=== PATIENT | female | born 1985 | race Caucasian/White ===

== ENCOUNTER → 2017-07-19 | Outpatient (CLI) | payer OTHER ==
[2017-07-19 14:29] LABS: Source, Urine Clean Catch
[2017-07-19 16:47] LABS: Bilirubin, Urine Neg (Neg); Blood, Urine Neg (Neg); Glucose Qualitative, Urine Neg (Neg); Ketones, Urine Neg (Neg); Leukocyte Esterase, Urine Neg (Neg); Nitrite, Urine Neg (Neg); Protein, Urine Neg (Neg); Urobilinogen, Urine NORM (Normal)
[2017-07-19 16:55] LABS: Appearance, Urine Clear (Clear); Color, Urine Yellow (P-Yellow)
== END | disposition home or self-care (01) ==
LOC: LAB 14:27
PROVIDERS: Psychiatry & Neurology Neurology
DX: R32 Unspecified urinary incontinence (principal)
CPT/HCPCS: 81003

== ENCOUNTER → 2019-04-20 | Outpatient (CLI) | payer OTHER | LOC: LAB SHORT 15:43 → LAB EV 15:43 | DX: N39.0 Urinary tract infection, site not specified (principal) | CPT/HCPCS: 87077; 87086; 87186 ==

== ENCOUNTER 2019-07-25 14:44 | Emergency (ER) | payer OTHER ==
[~2019-07-25] VITALS: Ht 167.6 cm; Wt 72.6 kg
[2019-07-25] MEDS ORDERED: DULO60 PO (15:22)
== END 2019-07-25 16:02 | disposition home or self-care (01) ==
LOC: ER 14:44
DX: S83.8X2A Sprain of other specified parts of left knee, initial encounter (principal); Z88.1 Allergy status to other antibiotic agents; Z88.2 Allergy status to sulfonamides; Z88.0 Allergy status to penicillin; G35 Multiple sclerosis; Z79.899 Other long term (current) drug therapy
CPT/HCPCS: 99283

== ENCOUNTER → 2020-09-06 | Outpatient (CLI) | payer OTHER ==
[~2020-09-06] MED LIST: DULO60 PO
== END | disposition home or self-care (01) ==
LOC: LAB 12:30 → LAB SHORT 12:30
DX: N39.0 Urinary tract infection, site not specified (principal)
CPT/HCPCS: 87077; 87086; 87186

== ENCOUNTER → 2021-02-02 | Outpatient (CLI) | payer OTHER | END | disposition home or self-care (01) | LOC: LAB SHORT 19:41 → LAB 19:41 | DX: N39.0 Urinary tract infection, site not specified (principal) | CPT/HCPCS: 87077; 87086; 87186 ==

== ENCOUNTER → 2022-01-20 | Outpatient (CLI) | payer OTHER | END | disposition home or self-care (01) | LOC: LAB SHORT 15:25 → LAB 15:25 | DX: N39.0 Urinary tract infection, site not specified (principal) | CPT/HCPCS: 87077; 87086; 87186 ==

== ENCOUNTER → 2022-08-31 | Outpatient (CLI) | payer OTHER | END | disposition home or self-care (01) | LOC: LAB SHORT 15:28 | DX: E53.8 Deficiency of other specified B group vitamins (principal) | CPT/HCPCS: 82607; 82746 ==

== ENCOUNTER → 2022-10-08 | Outpatient (CLI) | payer OTHER | END | disposition home or self-care (01) | LOC: LAB 18:00 → LAB SHORT 18:00 | DX: N39.0 Urinary tract infection, site not specified (principal) | CPT/HCPCS: 87077; 87086; 87186 ==

== ENCOUNTER → 2023-01-19 | Outpatient (CLI) | payer OTHER ==
[2023-01-22 18:35] LABS: Adenovirus F 40/41 Not Detected (NOT DETECT); Astrovirus Not Detected (NOT DETECT); Campylobacter Sp Not Detected (NOT DETECT); Cryptosporidium Not Detected (NOT DETECT); Cyclospora Cayetanensis Not Detected (NOT DETECT); E. Coli O157 Not Detected (NOT DETECT); Entamoeba Histolytica Not Detected (NOT DETECT); Enteroaggregative E. coli-EAEC Not Detected (NOT DETECT); Enteropathogenic E. coli-EPEC Not Detected (NOT DETECT); Enterotoxigenic E. coli-ETEC Not Detected (NOT DETECT); Giardia Lamblia Not Detected (NOT DETECT); Norovirus GI/GII Not Detected (NOT DETECT); Plesiomonas Shigelloides Not Detected (NOT DETECT); Rotavirus A Not Detected (NOT DETECT); Salmonella Sp Not Detected (NOT DETECT); Sapovirus Not Detected (NOT DETECT); Shiga Toxin-prod E. coli-STEC Not Detected (NOT DETECT); Shigella/Enteroin E. coli-EIEC Not Detected (NOT DETECT); Vibrio Cholerae Not Detected (NOT DETECT); Vibrio Sp Not Detected (NOT DETECT); Yersinia Enterocolitica Not Detected (NOT DETECT)
== END | disposition home or self-care (01) ==
LOC: LAB 19:38 → LAB SHORT 19:38
PROVIDERS: Physician Assistant Surgical
DX: R19.7 Diarrhea, unspecified (principal)
CPT/HCPCS: 87507

== ENCOUNTER → 2023-06-14 | Outpatient (CLI) | payer OTHER | LOC: LAB 16:30 → LAB SHORT 16:30 | DX: N39.0 Urinary tract infection, site not specified (principal) | CPT/HCPCS: 87077; 87086; 87186 ==

== ENCOUNTER 2023-10-04 06:48 | Inpatient (IN) | payer OTHER ==
[2023-10-04] VITALS (24 sets, daily range): BP systolic 98–159; BP diastolic 58–91
[~2023-10-04] VITALS: Ht 167.6 cm; Wt 79.8 kg
[2023-10-04] MEDS ORDERED: Lactated Ringer's 1,000 ML IV ONE (07:04)
[2023-10-04] MEDS ORDERED: Lactated Ringer's 1,000 ML IV SCH (07:10)
[2023-10-04] MEDS ORDERED: CeFAZolin Sodium 2,000 MG in NS 100 ML IV SCH ×2 (07:10→17:00)
[2023-10-04] MEDS ORDERED: Metoclopramide HCl 5MG / ML 2ML Vial IV ONE (07:10)
[2023-10-04] MEDS ORDERED: Citric Acid/Sodium Citrate 30 ML BTL PO SCH (07:10)
[2023-10-04] MEDS ORDERED: PRENA1 CHEW TA1.4 MG PO (07:41)
[2023-10-04] MEDS ORDERED: ASPIR 8181 M1 PO (07:42)
[2023-10-04 08:49] LABS: BASOPHILS ABSOLUTE AUTO 0.06 K/mm3 (0.00-0.23); BASOPHILS PERCENT AUTO 1 % (0-2); EOSINOPHILS ABSOLUTE AUTO 0.07 K/mm3 (0.00-0.68); EOSINOPHILS PERCENT AUTO 1 % (0-6); Hematocrit 43.8 % (33.0-51.0); IMMATURE GRAN ABSOLUTE AUTO 0.02 K/mm3 (0.00-0.10); IMMATURE GRAN PERCENT AUTO 0 % (0-1); LYMPHOCYTES ABSOLUTE AUTO 1.95 K/mm3 (0.84-5.20); LYMPHOCYTES PERCENT AUTO 27 % (21-46); MONOCYTES PERCENT AUTO 10 % (4-13); Mean Corpuscular HGB 31.8 pg (26.0-34.0); Mean Corpuscular HGB Conc 34.2 g/dL (31.5-36.5); Mean Corpuscular Volume 93 fL (80-100); Mean Platelet Volume 10.8 fL (9.1-12.4); NEUTROPHILS PERCENT AUTO 61 % (41-73); Platelet Count 192 K/mm3 (150-400); RDW Coefficient Variation 13.4 % (11.7-14.2); RDW Standard Deviation 45.9 fL (35.1-46.3); Red Blood Cell Count 4.71 M/mm3 (3.80-5.20)
[2023-10-04 09:11] LABS: Albumin, Blood 2.6 g/dL (3.4-5.0); Albumin/Globulin Ratio 0.7 (0.8-1.8); Bilirubin, Total 0.4 mg/dL (0.1-1.0); Bun/Creatinine Ratio 16.4 (12.0-20.0); Creatinine, Blood 0.79 mg/dL (0.40-1.00); Globulin, Blood 3.5 g/dL (2.2-4.0); Potassium, Blood 3.8 mmol/L (3.5-5.5); Total Protein, Blood 6.1 g/dL (6.4-8.2)
[2023-10-04] MEDS ORDERED: FentaNYL Citrate 50 MCG/ML 2 ML Injection ONE (09:19)
[2023-10-04] MEDS ORDERED: ePHEDrine Sulfate 50 MG/ML 1ML Injection ONE (09:42)
[2023-10-04] MEDS ORDERED: Lidocaine HCl 2% 10 ML SDA ONE (10:04)
--- NOTE | 2023-10-04 10:32 | NUR ---
10/04/23 1032 Vonnie Voss VIABLE FEMALE DELIVERED VIA PRIMARY CS FOR IUGR AND BREECH AT 37 2/7 GESTATION. DELIVERED AT 1018 AM WEIGHING 4 POUNDS 7 OUNCES 2000 GRAMS LENGTH 17 3/4 LONG. APGARS PENDING. CORD GASES SENT WITH MIKAYLA CAMPOS AND CORD BLOOD SENT. NO NEED TO SEND PLACENTA PER DR TIKA FREY. SEE MD NOTE FOR OPERATIVE DETAILS.
[2023-10-04 10:50] LABS: PCO2 Cord - Arterial 51.8 mmHg (40-50); PO2 Cord - Arterial 33 mmHg (16-20); pH Cord - Arterial 7.27 (7.28-7.35)
[2023-10-04 10:52] LABS: pH Umbilical Cord - Venous 7.34 (7.26-7.35)
[2023-10-04 10:53] LABS: PCO2 Cord - Venous 46.2 mmHg (40-50); PO2 Cord - Venous 24.8 mmHg (28-32)
[2023-10-04] MEDS ORDERED: Promethazine HCl 25 MG Tab PO PRN (11:25)
[2023-10-04] MEDS ORDERED: OxyCODONE 5 mg/Acetamin 325 mg TABLET PO PRN (11:25)
[2023-10-04] MEDS ORDERED: Acetaminophen 500 MG Tab PO PRN (11:25)
[2023-10-04] MEDS ORDERED: Promethazine HCl 25 MG Supp PR PRN (11:25)
[2023-10-04] MEDS ORDERED: Promethazine HCl 12.5 MG Supp PR PRN (11:30)
[2023-10-04] MEDS ORDERED: Lanolin Cream TOP PRN (11:30)
[2023-10-04] MEDS ORDERED: Methylergonovine Maleate 0.2MG / ML 1ML Amp IM PRN (11:30)
[2023-10-04] MEDS ORDERED: Morphine Sulfate 4 MG/1 ML Injection IV PRN (11:30)
[2023-10-04] MEDS ORDERED: Magnesium Hydroxide Conc 10 ML UDC PO PRN (11:30)
[2023-10-04] MEDS ORDERED: Misoprostol 200 MCG Tab PR PRN (11:30)
[2023-10-04] MEDS ORDERED: Ondansetron HCl 2 MG / ML 2ML Vial IV PRN ×2 (11:30→11:40)
[2023-10-04] MEDS ORDERED: LR Oxytocin 20 Units 1,000 ML IV SCH (11:35)
[2023-10-04] MEDS ORDERED: Atropine Sulfate 0.1 MG/ML 10ML SYR IV PRN (11:35)
[2023-10-04] MEDS ORDERED: Simethicone 80 MG Chew PO PRN (11:35)
[2023-10-04] MEDS ORDERED: HydrALAZINE HCl 20 MG / ML 1ML Vial IV PRN (11:35)
[2023-10-04] MEDS ORDERED: HYDROmorphone HCl/Pf 1MG SYR IV PRN ×2 (11:35)
[2023-10-04] MEDS ORDERED: FentaNYL Citrate 50 MCG/ML 2 ML Injection IV PRN ×2 (11:40)
[2023-10-04] MEDS ORDERED: Tranexamic Acid 100 ML IV PRN (11:45)
[2023-10-04] MEDS ORDERED: Ketorolac Tromethamine 30mg Vial IV SCH (12:00)
[2023-10-04] MEDS ORDERED: DiphenhydrAMINE HCL 25 MG Cap PO PRN (12:15)
[2023-10-04] MEDS ORDERED: Ketorolac Tromethamine 30mg Vial IV PRN (14:35)
[2023-10-04] MEDS ORDERED: Ibuprofen 400 MG Tab PO PRN (14:35)
[2023-10-04] MEDS ORDERED: Ibuprofen 400 MG Tab PO SCH (16:00)
--- NOTE | 2023-10-04 19:06 | NUR ---
Rept to PM shift
[2023-10-04] MEDS ORDERED: Docusate Sodium 100 MG Cap PO SCH (21:00)
[2023-10-05] VITALS (8 sets, daily range): BP systolic 110–173; BP diastolic 53–70
[2023-10-05 06:14] LABS: BASOPHILS ABSOLUTE AUTO 0.04 K/mm3 (0.00-0.23); BASOPHILS PERCENT AUTO 0 % (0-2); EOSINOPHILS PERCENT AUTO 0 % (0-6); Hematocrit 31.1 % (33.0-51.0); Hemoglobin 10.7 g/dL (11.5-16.0); IMMATURE GRAN ABSOLUTE AUTO 0.06 K/mm3 (0.00-0.10); IMMATURE GRAN PERCENT AUTO 0 % (0-1); LYMPHOCYTES ABSOLUTE AUTO 2.86 K/mm3 (0.84-5.20); LYMPHOCYTES PERCENT AUTO 17 % (21-46); MONOCYTES ABSOLUTE AUTO 1.34 K/mm3 (0.16-1.47); MONOCYTES PERCENT AUTO 8 % (4-13); Mean Corpuscular HGB 31.9 pg (26.0-34.0); Mean Corpuscular HGB Conc 34.4 g/dL (31.5-36.5); Mean Corpuscular Volume 93 fL (80-100); NEUTROPHILS ABSOLUTE AUTO 12.38 K/mm3 (1.96-9.15); NEUTROPHILS PERCENT AUTO 74 % (41-73); Platelet Count 192 K/mm3 (150-400); RDW Coefficient Variation 13.5 % (11.7-14.2); RDW Standard Deviation 45.6 fL (35.1-46.3); Red Blood Cell Count 3.35 M/mm3 (3.80-5.20); White Blood Cell Count 16.68 K/mm3 (4.00-11.30)
[2023-10-05] MEDS ORDERED: Prenatal Vit/FE Fumarate/FA 1 Tab PO SCH (09:00)
[2023-10-05] MEDS ORDERED: Aspirin 81 MG TabEC PO SCH (09:00)
--- NOTE | 2023-10-05 15:07 | NUR ---
PT UP TO BRP WITH ASSIST FROM RN BUT PT APPEARS STRONGER ON HER LEFT SIDE. STILL REQUIRES 1 PERSON ASSIST. PT ENCOURAGED TO PUMP MULTIPLE TIMES TODAY. PT REPORTS SHE WILL BUT HASN'T YET. PT REPORTS SHE MAY JUST SWITCH TO FORMULA UNTIL HER MILK COMES IN. INFORMED THAT HER MILK WILL COME IN WITH A BETTER SUPPLY IF SHE STARTS PUMPING. PT HAS HER OWN PUMP IN THE ROOM. RN OFFERED TO ASSIST IF PT NEEDS ASSISTANCE.
[2023-10-06 05:04] VITALS: BP 135/59
[2023-10-06 07:13] VITALS: BP 127/76
--- NOTE | 2023-10-06 08:41 | NUR ---
PT UP TO BRP WITH STANDBY ASSIST ONLY. NEEDED SOME HELP GETTING LEGS IN AND OUT OF BED BUT PT REPORTS SHE FEELS STRONGER TODAY.
[2023-10-06] MEDS ORDERED: FLU VACC QS2023-24(6MOS UP)/PF 60 MCG/0.5 ML SYRINGE IM ONE (10:15)
[2023-10-06 12:46] VITALS: BP 121/60
[2023-10-06] MEDS ORDERED: IBUP800 PO (14:03)
[2023-10-06] MEDS ORDERED: DOCU100 PO (14:04)
[2023-10-06] MEDS ORDERED: Percocet 5-3251 EACH PO (14:05)
--- NOTE | 2023-10-06 15:08 | NUR ---
PT UP AMBULATING IN THE ROOM INDEPENDANTLY LONG SHE CAN REACH A SIDE RAIL OBJECT. RN IN ROOM TO ASSIST IF PT NEEDS ANYTHING. PT REPORTS SHE FEELS MUCH STRONGER AND UP TO BRP INDEPENDANTLY.
--- NOTE | 2023-10-06 15:44 | NUR ---
D/C HOME WITH BABY
== END 2023-10-06 15:46 | disposition home or self-care (01) | DRG 787 ==
LOC: BC 06:48
PROVIDERS: ADMIT Obstetrics & Gynecology
PROC: 3E1P78Z Irrigation of Female Reproductive using Irrigating Substance, Via Natural or Artificial Opening (ICD-10-PCS; 2023-10-04)
PROC: 10D00Z1 Extraction of Products of Conception, Low, Open Approach (ICD-10-PCS; principal; 2023-10-04 09:00)
DX: O36.5930 Maternal care for other known or suspected poor fetal growth, third trimester, not applicable or unspecified (principal); O99.354 Diseases of the nervous system complicating childbirth; O32.1XX0 Maternal care for breech presentation, not applicable or unspecified; Z30.2 Encounter for sterilization; O24.429 Gestational diabetes mellitus in childbirth, unspecified control; Z3A.37 37 weeks gestation of pregnancy; Z37.0 Single live birth; G35 Multiple sclerosis; Z88.0 Allergy status to penicillin; Z88.1 Allergy status to other antibiotic agents; Z88.2 Allergy status to sulfonamides; Z88.8 Allergy status to other drugs, medicaments and biological substances; Z90.49 Acquired absence of other specified parts of digestive tract; Z98.890 Other specified postprocedural states
CPT/HCPCS: 36415; 80053; 82803; 82947; 85025; 86850; 86900; 86901; 86923; A9270; J0690; J1885; J2001; J2765; J3010; J7120

== ENCOUNTER 2024-09-11 10:28 | Day surgery (SDC) | payer OTHER ==
[~2024-09-11] VITALS: Ht 167.6 cm; Wt 63.5 kg
[~2024-09-11 10:28] MED LIST changes: +AMPYRA10 MG; +ASPIR 8181 M1 PO; +CILO100 PO; +DOCU100 PO; +ERGO50000 PO; +IBUP800 PO; +PRENA1 CHEW TA1.4 MG PO; +Percocet 5-3251 EACH PO
[2024-09-11] MEDS ORDERED: CeFAZolin Sodium 2,000 MG VIAL ONE (10:46)
[2024-09-11] MEDS ORDERED: Lactated Ringer's 1,000 ML IV ONE ×2 (10:46→11:10)
[2024-09-11] MEDS ORDERED: VITAMIN D5000 UNIT PO (10:58)
[2024-09-11] MEDS ORDERED: CALCIUM-MAGNES1 EA11 PO (10:59)
[2024-09-11] MEDS ORDERED: propofoL 40 ML IV ONE (11:10)
[2024-09-11] MEDS ORDERED: FentaNYL Citrate 50 MCG/ML 2 ML Injection ONE (11:10)
[2024-09-11] MEDS ORDERED: Lidocaine HCl 2% 10 ML SDA ONE (11:25)
[2024-09-11] MEDS ORDERED: Bupivacaine 0.5% W/EPI 1:200000 SDV 30 ML Vial ONE (11:26)
[2024-09-11] MEDS ORDERED: Ondansetron HCl 2 MG / ML 2ML Vial ONE (11:30)
[2024-09-11] MEDS ORDERED: Dexamethasone Sod Phos 10 MG/ML 1ML VIAL ONE (11:30)
[2024-09-11] MEDS ORDERED: Ketorolac Tromethamine 30mg Vial ONE (11:30)
[2024-09-11] MEDS ORDERED: propofoL 50 ML IV ONE (11:31)
[2024-09-11] MEDS ORDERED: Acetaminophen 500 MG Tab ONE (11:32)
[2024-09-11] MEDS ORDERED: Dexmedetomidine HCL 200 MCG / 2 ML ONE (11:47)
[2024-09-11] MEDS ORDERED: Glycopyrrolate 0.2 MG/ML 5ML VIAL ONE (12:06)
[2024-09-11] MEDS ORDERED: Phenylephrine HCl 100 MCG/ML-NS 10MLSYR (1MG/10ML) ONE (12:13)
[2024-09-11 13:03] VITALS: BP 137/78
--- NOTE | 2024-09-11 13:05 | NUR ---
09/11/24 1304 YODIT MAHONEY DENIES PAIN AND NAUSEA
== END 2024-09-11 13:52 | disposition home or self-care (01) ==
LOC: ORSCSDS 10:28
PROVIDERS: Podiatrist Foot & Ankle Surgery
PROC: 0QBQ0ZZ Excision of Right Toe Phalanx, Open Approach (ICD-10-PCS; principal; 2024-09-11 11:45)
PROC: 0QSN04Z Reposition Right Metatarsal with Internal Fixation Device, Open Approach (ICD-10-PCS; principal; 2024-09-11 11:45)
DX: M20.5X1 Other deformities of toe(s) (acquired), right foot (principal); I73.9 Peripheral vascular disease, unspecified; Z87.891 Personal history of nicotine dependence; K21.9 Gastro-esophageal reflux disease without esophagitis; G35 Multiple sclerosis; Z79.899 Other long term (current) drug therapy; Z79.82 Long term (current) use of aspirin
CPT/HCPCS: A9270; J0690; J1100; J1885; J2003; J2371; J2405; J2704; J3010; J7120

== ENCOUNTER → 2024-12-06 | Outpatient (CLI) | payer OTHER ==
[~2024-12-06] MED LIST changes: +CALCIUM-MAGNES1 EA11 PO; +VITAMIN D5000 UNIT PO
== END | disposition home or self-care (01) ==
LOC: LAB 14:05 → LAB SHORT 14:05
DX: N39.0 Urinary tract infection, site not specified (principal)
CPT/HCPCS: 87077; 87086; 87186

== ENCOUNTER → 2025-05-23 | Outpatient (CLI) | payer OTHER | LOC: LAB SHORT 13:25 → LAB 13:25 | DX: N39.0 Urinary tract infection, site not specified (principal) | CPT/HCPCS: 87077; 87086; 87186 ==